=== PATIENT | female | born 1945 | race Two or more races ===

== ENCOUNTER 2017-10-23 00:43 | Emergency (ER) | payer MEDICARE, OTHER ==
[2017-10-23 01:24] VITALS: BP 133/58
== END 2017-10-23 01:33 | disposition left against medical advice (07) ==
LOC: ER 00:43
DX: Z53.21 Procedure and treatment not carried out due to patient leaving prior to being seen by health care provider (principal)

== ENCOUNTER 2019-08-19 09:02 | Emergency (ER) | payer MEDICARE ==
[2019-08-19 10:08] LABS: ABSOLUTE EOSINOPHILS # (AUTO) 0.1 10^3/uL (0.0-0.6); ABSOLUTE LYMPHOCYTES (AUTO) 1.5 10^3/uL (0.5-4.7); ABSOLUTE MONOCYTES (AUTO) 0.5 10^3/uL (0.1-1.4); ABSOLUTE NEUT (AUTO) 5.9 10^3/uL (1.7-8.2); BASOPHILS % (AUTO) 0.2 % (0-2); EOSINOPHILS % (AUTO) 0.8 % (0-6); HEMATOCRIT 36.7 % (36.0-47.0); HEMOGLOBIN 12.3 g/dL (12.0-15.5); LYMPHOCYTES % (AUTO) 18.7 % (13-45); MEAN CORPUSCULAR HEMOGLOBIN 29.9 pg (27.0-33.4); MEAN CORPUSCULAR HGB CONC 33.4 g/dL (32.0-36.0); MEAN CORPUSCULAR VOLUME 90 fl (80-97); MONOCYTES % (AUTO) 6.3 % (3-13); PLATELET COUNT 394 10^3/uL (150-450); RED CELL DISTRIBUTION WIDTH 14.4 % (11.5-14.0); TOTAL CELLS COUNTED % (AUTO) 100 %
--- NOTE | 2019-08-19 10:14 | ER Document Report ---
ED Medical Screen (RME) - General Chief Complaint: Probable Seizure Stated Complaint: POSSIBLE SEIZURE Time Seen by Provider: 08/19/19 10:09 Primary Care Provider: LUIS JONES MD [Primary Care Provider] - Follow up as needed Mode of Arrival: Wheelchair Information source: Relative Notes: 73-year-old female presented to ED for complaint of falling off the potty chair at home. According to the family the friends saw her shaking when she was on the floor but she was able to answer all questions. He states she was mumbling at times but family states she is dementia and does mumble frequently she does have a history of diabetes cholesterol osteoporosis. She is answering questions for me she does state that she thought she was altered in 73 but that is her age. She is able to move all extremities freely she denies any pain at this time. I have greeted and performed a rapid initial assessment of this patient. A comprehensive ED assessment and evaluation of the patient, analysis of test results and completion of medical decision making process will be conducted by an additional ED providers. TRAVEL OUTSIDE OF THE [place] IN LAST 30 DAYS: No - Related Data Allergies/Adverse Reactions: Penicillins Allergy (Intermediate, Verified 08/19/19 09:24) FAINTED Past Medical History - Past Medical History Cardiac Medical History: Reports: Hx Hypertension Denies: Hx Coronary Artery Disease, Hx Heart Attack Pulmonary Medical History: Denies: Hx Asthma, Hx Bronchitis, Hx COPD, Hx Pneumonia Neurological Medical History: Denies: Hx Cerebrovascular Accident, Hx Seizures Musculoskeltal Medical History: Denies Hx Arthritis Past Surgical History: Denies: Hx Hysterectomy - Immunizations Hx Diphtheria, Pertussis, Tetanus Vaccination: No Physical Exam - Vital signs Vitals: Temp Pulse Resp BP Pulse Ox 97.9 F 62 16 163/80 H 100 08/19/19 09:23 08/19/19 09:23 08/19/19 09:23 08/19/19 09:23 08/19/19 09:23 Course - Vital Signs Vital signs: Temp Pulse Resp BP Pulse Ox 97.9 F 62 16 161/95 H 100 08/19/19 09:23 08/19/19 09:23 08/19/19 10:01 08/19/19 10:01 08/19/19 10:01 - Laboratory Result Diagrams: 08/19/19 09:40 08/19/19 09:40 Doctor's Discharge - Discharge Referrals: LUIS JONES MD [Primary Care Provider] - Follow up as needed
[2019-08-19 10:19] LABS: ALBUMIN 4.6 g/dL (3.5-5.0); ALKALINE PHOSPHATASE 76 U/L (38-126); ANION GAP 11 (5-19); ASPARTATE AMINO TRANSFERASE 60 U/L (14-36); BILIRUBIN,DIRECT 0.1 mg/dL (0.0-0.4); BILIRUBIN,TOTAL 0.3 mg/dL (0.2-1.3); BLOOD UREA NITROGEN 31 mg/dL (7-20); CALCIUM 10.6 mg/dL (8.4-10.2); CARBON DIOXIDE 33 mmol/L (22-30); CHLORIDE 99 mmol/L (98-107); POTASSIUM 4.5 mmol/L (3.6-5.0); TOTAL PROTEIN 7.9 g/dL (6.3-8.2)
[2019-08-19 10:22] LABS: ALCOHOL < 10 mg/dL (NONE DETECTED); GLUCOSE 54 mg/dL (75-110)
[2019-08-19 10:54] LABS: APPEARANCE,URINE CLEAR; BILIRUBIN,URINE NEGATIVE (NEGATIVE); COLOR,URINE COLORLESS; GLUCOSE, URINE NEGATIVE (NEGATIVE); KETONES,URINE NEGATIVE (NEGATIVE); LEUKOCYTE ESTERASE,URINE NEGATIVE (NEGATIVE); NITRITE,URINE NEGATIVE (NEGATIVE); PROTEIN,URINE 30 mg/dL (NEGATIVE); URINE SPECIFIC GRAVITY 1.004; UROBILINOGEN,URINE NEGATIVE mg/dL (<2.0)
[2019-08-19 11:12] LABS: URINE AMPHETAMINES SCREEN NEGATIVE; URINE BARBITURATES SCREEN NEGATIVE; URINE BENZODIAZEPINES SCREEN NEGATIVE; URINE COCAINE SCREEN NEGATIVE; URINE MARIJUANA (THC) SCREEN NEGATIVE; URINE METHADONE SCREEN NEGATIVE; URINE PHENCYCLIDINE SCREEN NEGATIVE
--- NOTE | 2019-08-19 11:48 | ER Document Report ---
ED General - General Chief Complaint: Probable Seizure Stated Complaint: POSSIBLE SEIZURE Time Seen by Provider: 08/19/19 10:09 Primary Care Provider: LUIS JONES MD [Primary Care Provider] - Follow up as needed Mode of Arrival: Wheelchair TRAVEL OUTSIDE OF THE [place] IN LAST 30 DAYS: No - HPI Notes: 73 WF bib "daughter" (actually neighbor she calls her daughter and who has lived beside her for many years and helps w/ cooking, cleaning, ensuring taking meds since "hasn;'t seen any of her real family in years) after she she's had more difficulty in last few days w/ her balance, and even seems moreso off balance and more confused that her baseline. they finally decided to bring her in today after finding her on her but by her potty chair at home pt usually able to use her google voice to ask someone from next door to come assist but wasn't working. they had to help her up and she had no pain once upright nad bearing weight but didn't needed full assistance to ambulate. at baseline she will hold onto things sometimes when going outside but walks w/o assistive device. before last few days hasn't had regular fall hx. her "family" / next door noted she was tremulous when they found her but she was able to answer all questions. they say though she keeps mentioning the google voice repeatedly which isn't usually like her. during my interview she also perseverates on being embarassed of wetting herself again. family say she doers wear absorptive undergarments but usually has no difficulty knowing she needs to pee and making it to toilet. pt confirms has been wetting herself all today. family say her speech is baseline now but she now in last few days increasingly seems to lose attention and start mumbling, but can be redirected and follow commands and make appropriate respojnses. daughter noticed today after getting her up from floor she is tending to fall over to her sides which is not baseline. "daughter" reports has h/o "dementia" for decades and has needed assistance w/ iADLs for years they have known her. pt says "daughter/neighbor" is her surrogate decision maker. pt denies AGGARWAL, double vision. deneis any extremity or other tingling numbness. denies any clumsiness in her feet/hands, but is scared to walk now. says she's been taking all her meds for diabetes, and htn. no new changes in meds. family say she manages her own meds. not on any blood thinning meds - Related Data Allergies/Adverse Reactions: Penicillins Allergy (Intermediate, Verified 08/19/19 09:24) FAINTED Past Medical History - General Information source: Patient - pt refers to neighbor as daugher, Relative Cannot obtain history due to: Altered mental status - Social History Smoking Status: Never Smoker Frequency of alcohol use: None Drug Abuse: None Lives with: Alone - with daily check ins by neighors. Family History: Reviewed & Not Pertinent Patient has suicidal ideation: No Patient has homicidal ideation: No - Past Medical History Cardiac Medical History: Reports: Hx Hypertension Denies: Hx Coronary Artery Disease, Hx Heart Attack Pulmonary Medical History: Denies: Hx Asthma, Hx Bronchitis, Hx COPD, Hx Pneumonia Neurological Medical History: Denies: Hx Cerebrovascular Accident, Hx Seizures Musculoskeletal Medical History: Denies Hx Arthritis Past Surgical History: Denies: Hx Hysterectomy - Immunizations Hx Diphtheria, Pertussis, Tetanus Vaccination: No Review of Systems - Review of Systems Constitutional: See HPI, Weakness. denies: Chills, Diaphoresis, Fever, Weight gain, Weight loss, Recent illness EENT: No symptoms reported. denies: Blurred vision, Double vision, Ear pain, Difficulty swallowing, Dental problem, Vertigo Cardiovascular: No symptoms reported Respiratory: No symptoms reported Gastrointestinal: No symptoms reported Genitourinary: See HPI, Frequency, Incontinence. denies: Burning, Dysuria, Discharge, Flank pain, Hematuria, Urgency, Retention Female Genitourinary: No symptoms reported, Post menopausal. denies: Vaginal bleeding Musculoskeletal: No symptoms reported Skin: No symptoms reported Hematologic/Lymphatic: No symptoms reported Neurological/Psychological: See HPI. denies: Hallucinations Physical Exam - Vital signs Vitals: Temp Pulse Resp BP Pulse Ox 97.9 F 62 16 163/80 H 100 08/19/19 09:23 08/19/19 09:23 08/19/19 09:23 08/19/19 09:23 08/19/19 09:23 Interpretation: Normal - General General appearance: Appears well, Alert. No: Combative In distress: None - HEENT Head: Normocephalic, Atraumatic. No: Abrasions, Ecchymosis Eyes: Normal. No: Pale conjunctiva, Scleral icterus Conjunctiva: No: Injected Extraocular movements intact: Yes Eyelashes: Normal Pupils: PERRL Corrective lenses worn: No Visual lobato normal: Yes - intact 2 finger count all 4 quadrants b/l Ears: Normal External canal: Normal Tympanic membrane: Normal Hearing loss: No: Left, Right Nasal: No: Nicola deformity, Clear rhinorrhea Mouth/Lips: Normal. No: Lesions Mucous membranes: Normal, Moist Pharynx: No: Erythema, Exudate Neck: Supple. No: Carotid bruit, Lymphadenopathy, Meningismus, Neck mass, Thyroid nodule, Thyromegally - Respiratory Respiratory status: No respiratory distress Chest status: Nontender Breath sounds: Normal Chest palpation: Normal - Cardiovascular Rhythm: Regular Heart sounds: Normal auscultation Murmur: No - Abdominal Inspection: Normal Distension: No distension Bowel sounds: Normal Tenderness: Nontender Organomegaly: No organomegaly - Back Back: Normal, Nontender. No: Deformity/step-off, CVA tenderness, Vertebra tenderness, Wounds - Extremities General upper extremity: Normal inspection, Nontender, Normal color, Normal ROM, Normal temperature General lower extremity: Normal inspection, Nontender, Normal color, Normal ROM, Normal temperature, Normal weight bearing. No: Edilia's sign - Neurological Cognition: Other - alert, answer questions appropriately follows commands but inattentive after <min, perseverates on google voice and urinary incontinence mentioning ea mult times after convo moves on Orientation: AAOx4 [place] Coma Scale Eye Opening: Spontaneous [place] Coma Scale Verbal: Oriented Patricio Coma Scale Motor: Obeys Commands Patricio Coma Scale Total: 15 Speech: Normal Cranial nerves: Normal. No: Facial palsy, Gaze palsy Cerebellar coordination: Gait ataxia, Other - neg romberg, no focal extremity ataxia/apraxia on fine repetitive movemenbts but extremely off balance needing full assistance to try to walk heel toe straight line and on turning around, nearly topples on trying to turn around taking very small steps watching her feet closely. Motor strength normal: LUE, RUE, LLE, RLE Additional motor exam normals: No: Involuntary movements, Pronator drift, Hemiplegia Sensory: Normal Notes: Patient able to pull herself up from supine to sitting and then with assistance stand and bear weight she is extremely off balance when walking with assistance needing to hold onto me and look at her feet. No foot drop, only shuffled wide slow gait with worsen balance when trying to turn around needing more assistance. No extremity upper or lower difficulty with more fine repetitive movements distally, strength is 5 out of 5 in all muscle groups tested in upper and lower extremities no cranial nerve deficits no gross visual field deficits. She is alert able to maintain attention and contribute to conversation she does perseverate on her gout go home which usually is helpful to let her caretakers know she needs help. - Psychological Associated symptoms: Normal affect - mood and affect sad, appropriate to situation, congruent, Normal mood, Anxious, Tearful. No: Aggressive, Agitated, Angry, Auditory hallucinations, Combative, Confused, Labile, Paranoid, Ps ychomotor agitation, Restlessness, Tangential speech, Visual hallucinations - Skin Skin Temperature: Warm Skin Moisture: Dry Skin Color: Normal Course - Re-evaluation Re-evalutation: 08/29/19 20:54 CT head orderd given truncal instability and gait ataxia, and since older and now few falls in few days. this explained clinical presentation although w/ unexpected finding of calcified mass at pineal gland abutting 3rd ventricle which appears dilated. .see below for full rad report. no acute/other blood. no shift or cerebral edema [facility]. they agree send her bari, since there is evidence of transition of normal pressure hydrocephalus to very likely imminent obstructive hydrocephalus given time course --really ataxia of 2 days getting mjch worse. i informed pt and family about diagnosis and need to see nsgy bari. they wluild be seeing her immediately upon her arrival at other hospital, she'd go by air, and they will need to discuss with both of you the risk/benefits of placing "drain". i prepared they worry you might need this drain more emergently/urgently given time frame and looking at your ventricles on CT scan think you may have had this going on for longer period of time but CSF is more suddenly not able to flow which they worry will get worse unless drain is placed. i said this is a common nsgy procedure but def always high risk for any intracranial procedure. i said sometimes in older adults w/ normal pressure hydrocephalus the risks outweigh benefits b/c say they have high risk of falliung for other reasons etc, bt i said in your case you cont to cook full means and get around well, and they may feel it;s needed to save your life and have decent chance or restoring your function before this started. they understand. pt's sensorium/alertness, VS remained stable up to time of transfer. i relayed to flight team if there was sudden neuro/mental status change it was crucial to just get to nsy given csf blockage, but rx any seizures just on safe side. has two PIV. remains nonfocal also - Vital Signs Vital signs: Temp Pulse Resp BP Pulse Ox 99.1 F 62 20 151/84 H 100 08/19/19 16:22 08/19/19 09:23 08/19/19 16:01 08/19/19 16:00 08/19/19 16:01 - Laboratory Result Diagrams: 08/19/19 09:40 08/19/19 09:40 Laboratory results interpreted by me: 08/19/19 08/19/19 08/19/19 09:40 09:40 10:20 RDW 14.4 H Carbon Dioxide 33 H BUN 31 H Est GFR (MDRD) Non-Af 57 L Glucose 54 L POC Glucose Calcium 10.6 H AST 60 H Urine Protein 30 H Urine Blood SMALL H 08/19/19 08/19/19 12:41 13:44 RDW Carbon Dioxide BUN Est GFR (MDRD) Non-Af Glucose POC Glucose 178 H 184 H Calcium AST Urine Protein Urine Blood - Diagnostic Test Radiology reviewed: Image reviewed, Reports reviewed Radiology results interpreted by me: Reviewed patient CT head personally and radiologist impression she has a rim calcified mass in the area of the pineal gland around 3 x 2 x 2 no cerebral nicol a or midline shift evidence no acute or other blood seen. "Extensive low-density white matter areas third ventricle is partially effaced and both lateral and third ventricles are enlarged 08/19/19 13:59 Critical Care Note - Critical Care Note Total time excluding time spent on procedures (mins): 30 Discharge - Discharge Clinical Impression: Pineal gland, tumor, Obstructive hydrocephalus Condition: Serious Disposition: [facility] Referrals: LUIS JONES MD [Primary Care Provider] - Follow up as needed
--- NOTE | 2019-08-19 12:38 | RADIOLOGY REPORT (SQ) ---
EXAM DESCRIPTION: CT HEAD WITHOUT COMPLETED DATE/TIME: 08/19/2019 12:17 pm REASON FOR STUDY: falls x2 confusion COMPARISON: None. TECHNIQUE: Axial images acquired through the brain without intravenous contrast. Images reviewed wi th bone, brain and subdural windows. Additional sagittal and coronal reconstructions were generated. Images stored on PACS. All CT scanners at this facility use dose modulation, iterative reconstruction, and/or weight based d osing when appropriate to reduce radiation dose to as low as reasonably achievable (ALARA). [facility]: Dose Right [facility]: CareDose [facility]: Dose Right [facility]: Teradose 4D [facility]: Smart [employer] RADIATION DOSE: CT Rad equipment meets quality standard of care and radiation dose reduction techniq ues were employed. CTDIvol: 53.2 mGy. DLP: 1635 mGy-cm. mGy. LIMITATIONS: None. FINDINGS: VENTRICLES: Enlarged lateral and 3rd ventricles. The 3rd ventricle is partially effaced b y mass. CEREBRUM: There is a rim calcified mass arising from the vicinity of the pineal gland and cerebral aq ueduct measuring approximately 3.1 x 2.2 x 2.3 cm (series 2, image 10, series 104, image 32). No hem orrhage. No midline shift. No evidence for acute infarction. Extensive areas of low density in the white matter most likely chronic small vessel ischemic changes. CEREBELLUM: No masses. No hemorrhage. No alteration of density. No evidence for acute infarction. EXTRAAXIAL SPACES: No fluid collections. No masses. ORBITS AND GLOBE: No intra- or extraconal masses. Normal contour of globe without masses. CALVARIUM: No fracture. PARANASAL SINUSES: No fluid or mucosal thickening. SOFT TISSUES: No mass or hematoma. OTHER: No other significant finding. IMPRESSION: There is a rim calcified mass arising from the vicinity of the pineal gland and cerebral aqueduct measuring approximately 3.1 x 2.2 x 2.3 cm (series 2, image 10, series 104, image 32). The re are enlarged lateral and 3rd ventricles, with the 3rd ventricle partially effaced by mass. 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 Recommend co ntrast-enhanced MRI to further evaluate. EVIDENCE OF ACUTE STROKE: NO. COMMENT: Quality ID # [id number]: Final reports with documentation of one or more dose reduction techniques (e.g., Automated exposure control, adjustment of the mA and/or kV according to patient size, use of iterative reconstruction technique) TECHNICAL DOCUMENTATION: JOB ID: [id number] [employer]- All Rights Reserved Reading location - IP/workstation name: [email or web address]
[2019-08-19] MEDS ORDERED: NORMAL SALINE 1000 ML 1,000 ML IV ONE (15:05)
[2019-08-19 16:22] VITALS: BP 151/84
== END 2019-08-19 16:49 | disposition short-term general hospital (02) ==
LOC: ER 09:02
DX: D49.7 Neoplasm of unspecified behavior of endocrine glands and other parts of nervous system (principal); G91.1 Obstructive hydrocephalus; R41.0 Disorientation, unspecified; R53.1 Weakness; R26.0 Ataxic gait; E11.9 Type 2 diabetes mellitus without complications; I10 Essential (primary) hypertension; Z88.0 Allergy status to penicillin
CPT/HCPCS: 99285; 36415; 82962; 80307 ×2; 83735; 85025; 80053; 81001; 70450; J7030

== ENCOUNTER 2020-06-07 20:12 | Emergency (ER) | payer MEDICARE ==
--- NOTE | 2020-06-07 20:33 | ER Document Report ---
ED Medical Screen (RME) - General Chief Complaint: Inability to Void Stated Complaint: UNABLE TO URINATE Time Seen by Provider: 06/07/20 20:15 Primary Care Provider: LUIS JONES MD [Primary Care Provider] - Follow up as needed Mode of Arrival: Wheelchair Information source: Patient, Legal Guardian Notes: 74-year-old female presents to ED for unable to urinate. She states that she has not urinated since 8 AM. Her legal guardian who is her caregiver is with her. She states that diaper is been dry all day. She has been stating that she needs to go to the bathroom every 10 to 15 minutes but has not urinated and has not wet her diaper. She states she does have a history of dementia. 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 She does have diabetes type 2 high cholesterol osteoporosis bursitis and rheumatoid arthritis. Patient is alert and at her normal orientation according to the caregiver. I have greeted and performed a rapid initial assessment of this patient. A comprehensive ED assessment and evaluation of the patient, analysis of test results and completion of medical decision making process will be conducted by an additional ED providers. TRAVEL OUTSIDE OF THE [place] IN LAST 30 DAYS: No - Related Data Allergies/Adverse Reactions: Penicillins Allergy (Intermediate, Verified 08/19/19 09:24) FAINTED Past Medical History - Social History Chew tobacco use (# tins/day): No Frequency of alcohol use: None Drug Abuse: None - Past Medical History Cardiac Medical History: Reports: Hx Hypercholesterolemia, Hx Hypertension Denies: Hx Coronary Artery Disease, Hx Heart Attack Pulmonary Medical History: Denies: Hx Asthma, Hx Bronchitis, Hx COPD, Hx Pneumonia Neurological Medical History: Denies: Hx Cerebrovascular Accident, Hx Seizures Endocrine Medical History: Reports: Hx Diabetes Mellitus Type 2 Musculoskeltal Medical History: Denies Hx Arthritis Past Surgical History: Denies: Hx Hysterectomy - Immunizations Hx Diphtheria, Pertussis, Tetanus Vaccination: No Physical Exam - Vital signs Vitals: Temp Pulse Resp BP Pulse Ox 99.0 F 73 16 123/57 L 98 06/07/20 20:19 06/07/20 20:19 06/07/20 20:19 06/07/20 20:19 06/07/20 20:19 Course - Vital Signs Vital signs: Temp Pulse Resp BP Pulse Ox 99.0 F 73 16 123/57 L 98 06/07/20 20:21 06/07/20 20:19 06/07/20 20:19 06/07/20 20:19 06/07/20 20:19 Doctor's Discharge - Discharge Referrals: LUIS JONES MD [Primary Care Provider] - Follow up as needed
[2020-06-07 22:14] LABS: APPEARANCE,URINE SLIGHTLY-CLOUDY; BILIRUBIN,URINE NEGATIVE (NEGATIVE); COLOR,URINE YELLOW; GLUCOSE, URINE NEGATIVE (NEGATIVE); KETONES,URINE NEGATIVE (NEGATIVE); LEUKOCYTE ESTERASE,URINE SMALL (NEGATIVE); NITRITE,URINE NEGATIVE (NEGATIVE); PROTEIN,URINE NEGATIVE (NEGATIVE); URINE SPECIFIC GRAVITY 1.024; UROBILINOGEN,URINE NEGATIVE mg/dL (<2.0)
[2020-06-07] MEDS ORDERED: CEFTRIAXONE 1 GM/D5W RTU 1 GM/50 ML RTUPB IV ONE (23:07)
[2020-06-07] MEDS ORDERED: NORMAL SALINE 1000 ML 1,000 ML IV ONE (23:07)
[2020-06-07] MEDS ORDERED: PHENAZOPYRIDINE HCL 200 MG TABLET PO ONE (23:08)
--- NOTE | 2020-06-07 23:13 | ER Document Report ---
ED General - General Chief Complaint: Inability to Void Stated Complaint: UNABLE TO URINATE Time Seen by Provider: 06/07/20 20:15 Primary Care Provider: LUIS JONES MD [Primary Care Provider] - Follow up as needed Mode of Arrival: Wheelchair TRAVEL OUTSIDE OF THE [place] IN LAST 30 DAYS: No - HPI Context: 74-year-old female presents to the emergency department with her caregiver for evaluation of inability to urinate. Patient's caregiver relates most of history. She states that patient urinated this morning around 8 AM without difficulty. She also states that the patient usually urinates around 4:30 in the afternoon. The caregiver states that she tries to make sure the patient drinks at least 68 ounces of water daily but she says that she is caught the patient putting water on the plants instead of drinking it at times. Caregiver states that around 5:00 this afternoon, patient repeatedly expressed the need to urinate several times and was unable to do so. Patient has a history of dementia and is a difficult historian. She denies alleviating or exacerbating factors. Patient's caregiver states that patient has had her normal baseline mental status. - Related Data Allergies/Adverse Reactions: Penicillins Allergy (Intermediate, Verified 08/19/19 09:24) FAINTED Past Medical History - General Information source: Patient, Legal Guardian - Social History Smoking Status: Never Smoker Chew tobacco use (# tins/day): No Frequency of alcohol use: None Drug Abuse: None Family History: Reviewed & Not Pertinent Patient has homicidal ideation: No - Past Medical History Cardiac Medical History: Reports: Hx Hypercholesterolemia, Hx Hypertension Denies: Hx Coronary Artery Disease, Hx Heart Attack Pulmonary Medical History: Denies: Hx Asthma, Hx Bronchitis, Hx COPD, Hx Pneumonia Neurological Medical History: Denies: Hx Cerebrovascular Accident, Hx Seizures Endocrine Medical History: Reports: Hx Diabetes Mellitus Type 2 Musculoskeletal Medical History: Denies Hx Arthritis Past Surgical History: Denies: Hx Hysterectomy - Immunizations Hx Diphtheria, Pertussis, Tetanus Vaccination: No Review of Systems - Review of Systems Constitutional: No symptoms reported EENT: No symptoms reported Cardiovascular: No symptoms reported Respiratory: No symptoms reported Gastrointestinal: No symptoms reported Genitourinary: Other - Inability to urinate Female Genitourinary: No symptoms reported Musculoskeletal: No symptoms reported Skin: No symptoms reported Hematologic/Lymphatic: No symptoms reported Neurological/Psychological: No symptoms reported -: Yes All other systems reviewed and negative Physical Exam - Vital signs Vitals: Temp Pulse Resp BP Pulse Ox 99.0 F 73 16 123/57 L 98 06/07/20 20:19 06/07/20 20:19 06/07/20 20:19 06/07/20 20:19 06/07/20 20:19 - Notes Notes: CONSTITUTIONAL [Vital signs reviewed, Patient appears comfortable, patient is pleasant, alert and oriented to person and place..] HEAD [Atraumatic, Normocephalic.] EYES [Eyes are normal to inspection, No discharge from eyes, Extraocular muscles intact, Sclera are normal, Conjunctiva are normal.]] NECK [Normal ROM, No jugular venous distention, No meningeal signs, ] RESPIRATORY CHEST [Chest is nontender, Breath sounds normal, No respiratory distress.] CARDIOVASCULAR [RRR, No murmurs, Normal S1 S2, No rub, No gallop.] ABDOMEN [Abdomen is nontender, No pulsatile masses, No other masses, Bowel sounds normal, No distension, No peritoneal signs, No hernias.] BACK [There is no CVA Tenderness, There is no tenderness to palpation, Normal inspection.] UPPER EXTREMITY [Inspection normal, No cyanosis, No clubbing, No edema, 2+ radial pulses.] LOWER EXTREMITY [Inspection normal, No cyanosis, No clubbing, No edema, No calf tenderness, 2+ femoral pulses.] NEURO [No focal motor deficits, No focal sensory deficits, Speech normal.] SKIN [Skin is warm, Skin is dry, Skin is normal color.] LYMPHATIC [No adenopathy in neck.] PSYCHIATRIC [Normal affect. ] Course - Re-evaluation Re-evalutation: 06/07/20 23:15 Differential diagnosis: UTI, dehydration, acute kidney injury, urethral stricture 06/08/20 01:49 Results of ED MSE discussed with patient and patient's caregiver. All questions were answered prior to discharge. Bladder scan reportedly was unremarkable in terms of retained urine so this MD is ordering removal of the Merlos catheter. Final diagnoses are dehydration and acute cystitis. - Vital Signs Vital signs: Temp Pulse Resp BP Pulse Ox 99.0 F 73 16 123/57 L 98 06/07/20 20:21 06/07/20 20:19 06/07/20 20:19 06/07/20 20:19 06/07/20 20:19 - Laboratory Result Diagrams: 06/08/20 00:20 06/08/20 00:20 Laboratory results interpreted by me: 06/07/20 06/08/20 06/08/20 21:52 00:20 00:20 Hgb 11.3 L Hct 33.9 L RDW 14.9 H BUN 48 H Creatinine 1.26 H Est GFR ( Amer) 50 L Est GFR (MDRD) Non-Af 42 L Glucose 215 H AST 43 H ALT 37 H Total Protein 6.1 L Ur Leukocyte Esterase SMALL H Urine Ascorbic Acid 40 H Discharge - Discharge Clinical Impression: Dehydration Acute cystitis Qualifiers: Hematuria presence: without hematuria Qualified Code(s): N30.00 - Acute cystitis without hematuria Condition: Stable Disposition: HOME, SELF-CARE Additional Instructions: Return to the Emergency Department without delay if any worse. HOME CARE INSTRUCTIONS & INFORMATION: Thank you for choosing us for your medical needs. We hope you're satisfied with the care you received. After you leave, you must properly care for your problem and, at the same time, observe its progress. Any condition can change. Some illnesses can change rapidly over hours or days. If your condition worsens, return to the Emergency Department or see your physician promptly. ABOUT YOUR X-RAYS AND EKG'S: If you had an EKG or X-rays taken, they have been read by the Emergency Physician. The X-rays and EKG's will also be read by a Radiologist or Build And Deployment Engineer within 24 hours. If discrepancies are noted, you will be notified by telephone. Please be certain the ED has a correct telephone number & address where you can be reached. Also, realize that some fractures or abnormalities do not show up on initial X-rays. If your symptoms continue, see your physician. ABOUT YOUR LABORATORY TEST: If you had laboratory tests, the results have been reviewed by the Emergency Physician. Some test results (for example cultures) may not be available for several days. You will be contacted if any test result shows you need additional treatment. Please be certain the ED has a correct telephone number and address where you can be reached. ABOUT YOUR MEDICATIONS: You will receive instructions on how to take your medicine on the prescription label you receive. Additional information may be provided by the Pharmacy. If you have questions afterwards, call the ED for clarification or further instructions. Some prescribed medications may cause drowsiness. Do not perform tasks such as driving a car or operating machinery without consulting your Pharmacist. If you feel you need a refill of pain m edication, your condition will need re-evaluation. Please do not call for a refill of any medication. ABOUT YOUR SIGNATURE: Signature of this document acknowledges to followin. Understanding that you received emergency treatment and that you may be released before al medical problems are known or treated. Please be certain the ED has a correct phone number & address where you can be reached. 2. Acknowledgement that you will arrange for follow-up care as recommended. 3. Authorization for the Emergency Physician to provide information to your follow-up Physician in order to maximize your care. AT ANY TIME, IF YOUR SYMPTOMS CHANGE SIGNIFICANTLY OR WORSEN OR YOU DEVELOP NEW SYMPTOMS, RETURN TO THE EMERGENCY DEPARTMENT IMMEDIATELY FOR RE-EVALUATION. OUR GOAL IS TO PROVIDE EXCELLENT MEDICAL CARE! WE HOPE THAT WE HAVE MET YOUR EXPECTATIONS DURING YOUR EMERGENCY DEPARTMENT VISIT AND THAT YOU FEEL YOU HAVE RECEIVED EXCELLENT CARE! Urinary Tract Infection Your evaluation indicates that you have a urinary tract infection. This is due to germs growing in the bladder. This is a common problem. This infection usually responds quickly to antibiotics. Your antibiotic should be taken exactly as prescribed. Drink plenty of fluids -- three to four quarts a day. Occasionally, a bladder anesthetic will be prescribed to help stop the feeling of urgency until the antibiotic has a chance to clear the infection. This may cause your urine to be dark orange. Certain urine infections require a culture. If the doctor obtained a culture, the results will be back in two days. You should call to see if a change in treatment is needed. A repeat urinalysis after you finish treatment is often recommended. The physician will let you know if further testing is required. Call the doctor if you develop fever, chills, flank pain, inability to urinate, or blood in the urine. Dehydration Dehydration can result from vomiting or diarrhea, fever, or decreased intake of fluids. If severe, hospitalization and intravenous fluids may be required. Most cases are treated at home with fluids by mouth. For the next 24 hours, drink lots of clear fluids. In mild cases, this can be soda pop or sports drinks. For more severe dehydration, the doctor may r ecommend special fluids such as Pedialyte or Lytren. Try to get three liters (3 quarts) of fluid per day. If vomiting occurs, continue to drink the fluids frequently (every 15 to 20 minutes), but in small amounts (one or two ounces). Depending on the type of dehydration, the doctor may prescribe antinausea medicine or potassium replacements. Call the doctor or return for re-examination if you become progressively weak, vomit repeatedly, or have other new symptoms. Prescriptions: Nitrofurantoin Monohyd/M-Cryst [Macrobid 100 mg Capsule] 100 mg PO BID 7 Days #14 cap Phenazopyridine HCl [Pyridium 200 mg Tablet] 200 mg PO TID 2 Days #6 tablet Referrals: LUIS JONES MD [Primary Care Provider] - Follow up as needed
[2020-06-08 00:57] LABS: ABSOLUTE BASOPHILS # (AUTO) 0.1 10^3/uL (0.0-0.2); ABSOLUTE EOSINOPHILS # (AUTO) 0.1 10^3/uL (0.0-0.6); ABSOLUTE LYMPHOCYTES (AUTO) 1.6 10^3/uL (0.5-4.7); ABSOLUTE MONOCYTES (AUTO) 0.5 10^3/uL (0.1-1.4); ABSOLUTE NEUT (AUTO) 3.9 10^3/uL (1.7-8.2); EOSINOPHILS % (AUTO) 2.3 % (0-6); HEMATOCRIT 33.9 % (36.0-47.0); HEMOGLOBIN 11.3 g/dL (12.0-15.5); LYMPHOCYTES % (AUTO) 25.9 % (13-45); MEAN CORPUSCULAR HEMOGLOBIN 29.3 pg (27.0-33.4); MEAN CORPUSCULAR HGB CONC 33.4 g/dL (32.0-36.0); MEAN CORPUSCULAR VOLUME 88 fl (80-97); MONOCYTES % (AUTO) 8.7 % (3-13); PLATELET COUNT 331 10^3/uL (150-450); RED BLOOD COUNT 3.87 10^6/uL (3.72-5.28); RED CELL DISTRIBUTION WIDTH 14.9 % (11.5-14.0); SEGMENTED NEUTROPHILS % (AUTO) 62.1 % (42-78); TOTAL CELLS COUNTED % (AUTO) 100 %; WHITE BLOOD COUNT 6.3 10^3/uL (4.0-10.5)
[2020-06-08 01:01] LABS: ALBUMIN 3.7 g/dL (3.5-5.0); ALKALINE PHOSPHATASE 118 U/L (38-126); ANION GAP 7 (5-19); ASPARTATE AMINO TRANSFERASE 43 U/L (14-36); BILIRUBIN,DIRECT 0.3 mg/dL (0.0-0.4); BILIRUBIN,TOTAL 0.3 mg/dL (0.2-1.3); BLOOD UREA NITROGEN 48 mg/dL (7-20); CALCIUM 9.4 mg/dL (8.4-10.2); CARBON DIOXIDE 28 mmol/L (22-30); CHLORIDE 106 mmol/L (98-107); GLUCOSE 215 mg/dL (75-110); POTASSIUM 4.9 mmol/L (3.6-5.0); TOTAL PROTEIN 6.1 g/dL (6.3-8.2)
[2020-06-08 02:05] VITALS: BP 143/67
== END 2020-06-08 02:25 | disposition home or self-care (01) ==
LOC: ER 20:12
DX: N30.00 Acute cystitis without hematuria (principal); E86.0 Dehydration; I10 Essential (primary) hypertension; E11.9 Type 2 diabetes mellitus without complications; Z88.0 Allergy status to penicillin
CPT/HCPCS: 99284; 51702; 96374; 36415; 87086; 85025; 87088; 80053; 81001; 87186; A9270; J7030; J0696; J3490

== ENCOUNTER 2020-09-25 14:46 | Emergency (ER) | payer MEDICARE ==
--- NOTE | 2020-09-25 15:31 | ER Document Report ---
ED Medical Screen (RME) - General Chief Complaint: Fall Injury Stated Complaint: FALL/BACK PAIN Time Seen by Provider: 09/25/20 15:20 Primary Care Provider: LUIS JONES MD [Primary Care Provider] - Follow up as needed Notes: Family states patient's had 2 falls recently one last night around 11 and one at 2 PM today. Family states that patient has not been acting normally since 2 PM. Patient does have a history of dementia and a previous brain tumor that has been operated on. Family states that patient is refusing to stand up or bear weight and is not carrying on conversations when she normally would. Patient occasionally will not follow instructions. Patient denies any discomfort in triage. I have greeted and performed a rapid initial assessment of this patient. A comprehensive ED assessment and evaluation of the patient, analysis of test results and completion of the medical decision making process will be conducted by additional ED providers. TRAVEL OUTSIDE OF THE [place] IN LAST 30 DAYS: No - Related Data Allergies/Adverse Reactions: Penicillins Allergy (Intermediate, Verified 09/25/20 15:15) FAINTED Past Medical History - Past Medical History Cardiac Medical History: Reports: Hx Hypercholesterolemia, Hx Hypertension Denies: Hx Coronary Artery Disease, Hx Heart Attack Pulmonary Medical History: Denies: Hx Asthma, Hx Bronchitis, Hx COPD, Hx Pneumonia Neurological Medical History: Denies: Hx Cerebrovascular Accident, Hx Seizures Endocrine Medical History: Reports: Hx Diabetes Mellitus Type 2 Musculoskeltal Medical History: Denies Hx Arthritis Past Surgical History: Denies: Hx Hysterectomy - Immunizations Hx Diphtheria, Pertussis, Tetanus Vaccination: No Physical Exam - Vital signs Vitals: Temp Pulse Resp BP Pulse Ox 99 F 81 20 154/82 H 95 09/25/20 15:17 09/25/20 15:17 09/25/20 15:17 09/25/20 15:17 09/25/20 15:17 - Neurological Cognition: Confused - Confused at times Orientation: Disoriented to time, Disoriented to events Patricio Coma Scale Eye Opening: Spontaneous Course - Vital Signs Vital signs: Temp Pulse Resp BP Pulse Ox 99 F 81 20 154/82 H 95 09/25/20 15:17 09/25/20 15:17 09/25/20 15:17 09/25/20 15:17 09/25/20 15:17 Doctor's Discharge - Discharge Referrals: LUIS JONES MD [Primary Care Provider] - Follow up as needed
--- NOTE | 2020-09-25 15:54 | RADIOLOGY REPORT (SQ) ---
EXAM DESCRIPTION: CT HEAD WITHOUT IMAGES COMPLETED DATE/TIME: 09/25/2020 3:45 pm REASON FOR STUDY: fall, AMS COMPARISON: 08/19/2019 TECHNIQUE: Axial images acquired through the brain without intravenous contrast. Images reviewed wi th bone, brain and subdural windows. Additional sagittal and coronal reconstructions were generated. Images stored on PACS. All CT scanners at this facility use dose modulation, iterative reconstruction, and/or weight based d osing when appropriate to reduce radiation dose to as low as reasonably achievable (ALARA). [facility]: Dose Right [facility]: CareDose [facility]: Dose Right [facility]: Teradose 4D [facility]: Smart [employer] RADIATION DOSE: CT Rad equipment meets quality standard of care and radiation dose reduction techniq ues were employed. CTDIvol: 53.2 - 55.2 mGy. DLP: 2019 mGy-cm.mGy. LIMITATIONS: None. FINDINGS: VENTRICLES: Persistent ventriculomegaly. CEREBRUM: Postsurgical changes on the right. Decreased attenuation throughout the periventricular wh ite matter consistent with small vessel disease. There is focal encephalomalacia in the right fronta l lobe most likely related to surgery. Large calcified mass in the region of the pt nail gland previ ously described is no longer noted. CEREBELLUM: No masses. No hemorrhage. No alteration of density. No evidence for acute infarction. EXTRAAXIAL SPACES: Age-related involutional change. No fluid collections. No masses. ORBITS AND GLOBE: No intra- or extraconal masses. Normal contour of globe without masses. CALVARIUM: No fracture. PARANASAL SINUSES: No fluid or mucosal thickening. SOFT TISSUES: No mass or hematoma. OTHER: No other significant finding. IMPRESSION: Postsurgical changes. Small vessel disease. No acute intracranial event. EVIDENCE OF ACUTE STROKE: NO. TECHNICAL DOCUMENTATION: JOB ID: [id number] Quality ID # [id number]: Final reports with documentation of one or more dose reduction techniques (e.g., Au tomated exposure control, adjustment of the mA and/or kV according to patient size, use of iterative reconstruction technique) 2010 [employer]- All Rights Reserved Reading location - IP/workstation name: [email or web address]
--- NOTE | 2020-09-25 15:55 | RADIOLOGY REPORT (SQ) ---
EXAM DESCRIPTION: CT CERVICAL SPINE WITHOUT IMAGES COMPLETED DATE/TIME: 09/25/2020 3:45 pm REASON FOR STUDY: fall COMPARISON: None. TECHNIQUE: Axial images acquired through the cervical spine without intravenous contrast. Images re viewed with lung, soft tissue and bone windows. Reconstructed coronal and sagittal MPR images review ed. Images stored on PACS. All CT scanners at this facility use dose modulation, iterative reconstruction, and/or weight based d osing when appropriate to reduce radiation dose to as low as reasonably achievable (ALARA). [facility]: Dose Right [facility]: CareDose [facility]: Dose Right [facility]: Teradose 4D [facility]: Smart [employer] RADIATION DOSE: CT Rad equipment meets quality standard of care and radiation dose reduction techniq ues were employed. CTDIvol: 10.9 mGy. DLP: 184 mGy-cm. mGy. LIMITATIONS: None. FINDINGS: ALIGNMENT: Anatomic. MINERALIZATION: Normal. VERTEBRAL BODIES: No fractures or dislocation. DISCS: Multilevel disc space narrowing with osteophytes. FACETS, LATERAL MASSES, POSTERIOR ELEMENTS: Facet arthropathy. No fractures. No dislocation. No ac burns paiute findings. HARDWARE: None in the spine. VISUALIZED RIBS: No fractures. LUNG APICES AND SOFT TISSUES: No significant or acute findings. OTHER: No other significant finding. IMPRESSION: CHRONIC DEGENERATIVE CHANGES. NO ACUTE FINDINGS. TECHNICAL DOCUMENTATION: JOB ID: [id number] Quality ID # [id number]: Final reports with documentation of one or more dose reduction techniques (e.g., Au tomated exposure control, adjustment of the mA and/or kV according to patient size, use of iterative reconstruction technique) 2010 [employer]- All Rights Reserved Reading location - IP/workstation name: [email or web address]
--- NOTE | 2020-09-25 16:06 | ER Document Report ---
ED General - General Chief Complaint: Fall Stated Complaint: FALL/BACK PAIN Time Seen by Provider: 09/25/20 15:20 Primary Care Provider: LUIS JONES MD [Primary Care Provider] - Follow up as needed Notes: Presents with pain and slight confusion. She has dementia lives alone but is supervised essentially 19/04 by her live-in neighbor who is a daughter figure to her and has known her for 20 years. The daughter figure, noticed that the patient was trying to get up and helped her but turned around briefly and the patient fell on the floor. She has been fidgety and complaining of pain in her whole body since then. No fevers no smelly urine or urinary symptoms no vomiting no trauma. TRAVEL OUTSIDE OF THE [place] IN LAST 30 DAYS: No - Related Data Allergies/Adverse Reactions: Penicillins Allergy (Intermediate, Verified 09/25/20 15:15) FAINTED Past Medical History - Social History Smoking Status: Never Smoker Chew tobacco use (# tins/day): No Drug Abuse: None Family History: Reviewed & Not Pertinent - Past Medical History Cardiac Medical History: Reports: Hx Hypercholesterolemia, Hx Hypertension Denies: Hx Coronary Artery Disease, Hx Heart Attack Pulmonary Medical History: Denies: Hx Asthma, Hx Bronchitis, Hx COPD, Hx Pneumonia Neurological Medical History: Denies: Hx Cerebrovascular Accident, Hx Seizures Endocrine Medical History: Reports: Hx Diabetes Mellitus Type 2 Musculoskeletal Medical History: Denies Hx Arthritis Past Surgical History: Denies: Hx Hysterectomy - Immunizations Hx Diphtheria, Pertussis, Tetanus Vaccination: No Review of Systems - Review of Systems Notes: REVIEW OF SYSTEMS Dementia PHYSICAL EXAMINATION General: No acute distress, well-nourished Head: Atraumatic, normocephalic ENT: Mouth normal, oropharynx moist, no exudates or tonsillar enlargement Eyes: Conjunctiva normal, pupils equal, lids normal Neck: No JVD, supple, no guarding CVS: Normal rate, regular rhythm, no murmurs Resp: No resp distress, equal and normal breath sounds bilaterally GI: Nondistended, soft, no tenderness to palpation, no rebound or guarding Ext: No deformities, no edema, normal range of motion in upper and lower ext Back: No CVA or midline TTP Skin: No rash, warm Lymphatic: No lymphadeopathy noted Neuro: Awake, alert. Answers simple questions but is disoriented and moves all extremities. 15. Physical Exam - Vital signs Vitals: Temp Pulse Resp BP Pulse Ox 99 F 81 20 154/82 H 95 09/25/20 15:17 09/25/20 15:17 09/25/20 15:17 09/25/20 15:17 09/25/20 15:17 Course - Re-evaluation Re-evalutation: 09/25/20 18:48 Patient presents with a fall. Her mental status is at baseline patient does have some muscle pain. Ruled out for rhabdo labs are essentially normal except for some dehydration and some nonspecific elevation of LFTs and a high enough to worry. She had imaging of her entire axial spine and had all of which were negative. She was observed with no decompensation. She will be discharged home to follow-up with her primary. I have discussed with the patient there likely diagnosis, aftercare plan, follow-up plans and my usual and customary return precautions. They verbalized understanding of this. - Vital Signs Vital signs: Temp Pulse Resp BP Pulse Ox 99.6 F 81 20 154/82 H 98 09/25/20 16:02 09/25/20 15:17 09/25/20 15:17 09/25/20 15:17 09/25/20 15:27 - Laboratory Results Result Diagrams: 09/25/20 17:45 09/25/20 17:45 Laboratory Results Interpreted: 09/25/20 09/25/20 09/25/20 16:28 17:45 17:45 Hgb 10.7 L Hct 32.1 L RDW 15.1 H Lymph % (Auto) 9.9 L Absolute Neuts (auto) 8.4 H Seg Neutrophils % 80.0 H Sodium 132.0 L Chloride 97 L BUN 28 H Est GFR (MDRD) Non-Af 53 L Glucose 292 H AST 37 H Alkaline Phosphatase 137 H Creatine Kinase 191 H Urine Glucose (UA) >=500 H Urine Blood SMALL H Critical Laboratory Results Reviewed: No Critical Results - Radiology Results Critical Radiology Results Reviewed: No Critical Results Discharge - Discharge Clinical Impression: Fall from standing Qualifiers: Encounter type: initial encounter Qualified Code(s): W19.XXXA - Unspecified fall, initial encounter Condition: Good Disposition: HOME, SELF-CARE Instructions: Contusion ([facility]) Additional Instructions: There is no broken bone soft tissue injury internal bleeding or other complication from the fall today we did not find any evidence of infection dehydration kidney failure or other emergency condition. Referrals: LUIS JONES MD [Primary Care Provider] - Follow up as needed
--- NOTE | 2020-09-25 16:26 | RADIOLOGY REPORT (SQ) ---
EXAM DESCRIPTION: CHEST SINGLE VIEW IMAGES COMPLETED DATE/TIME: 09/25/2020 4:19 pm REASON FOR STUDY: fall, AMS COMPARISON: None. EXAM PARAMETERS: NUMBER OF VIEWS: One view. TECHNIQUE: Single frontal radiographic view of the chest acquired. RADIATION DOSE: NA LIMITATIONS: None. FINDINGS: LUNGS AND PLEURA: No opacities, masses or pneumothorax. No pleural effusion. MEDIASTINUM AND HILAR STRUCTURES: No masses. Contour normal. HEART AND VASCULAR STRUCTURES: Heart normal in size. Normal vasculature. BONES: No acute findings. HARDWARE: None in the chest. OTHER: No other significant finding. IMPRESSION: NO ACUTE RADIOGRAPHIC FINDING IN THE CHEST. TECHNICAL DOCUMENTATION: JOB ID: [id number] 2010 [employer]- All Rights Reserved Reading location - IP/workstation name: [email or web address]
--- NOTE | 2020-09-25 16:28 | RADIOLOGY REPORT (SQ) ---
EXAM DESCRIPTION: HIP BILATERAL IMAGES COMPLETED DATE/TIME: 09/25/2020 4:19 pm REASON FOR STUDY: fall COMPARISON: None. NUMBER OF VIEWS: Two views TECHNIQUE: AP pelvis and additional frog-leg view of both hips. LIMITATIONS: None. FINDINGS: MINERALIZATION: Normal. HIPS: No acute fracture or dislocation. No worrisome bone lesions. PELVIS AND SACRUM: No acute fracture or dislocation. No worrisome bone lesions. PUBIS AND ISCHIUM: No acute fracture. LOWER LUMBAR SPINE: No significant findings as visualized. SOFT TISSUES: No findings. OTHER: No other significant finding. IMPRESSION: NEGATIVE STUDY OF THE PELVIS AND HIPS. TECHNICAL DOCUMENTATION: JOB ID: [id number] 2010 [employer]- All Rights Reserved Reading location - IP/workstation name: [email or web address]
[2020-09-25 16:47] LABS: APPEARANCE,URINE CLEAR; BILIRUBIN,URINE NEGATIVE (NEGATIVE); COLOR,URINE STRAW; GLUCOSE, URINE >=500 mg/dL (NEGATIVE); KETONES,URINE NEGATIVE (NEGATIVE); LEUKOCYTE ESTERASE,URINE NEGATIVE (NEGATIVE); NITRITE,URINE NEGATIVE (NEGATIVE); PROTEIN,URINE NEGATIVE (NEGATIVE); URINE SPECIFIC GRAVITY 1.015; UROBILINOGEN,URINE NEGATIVE mg/dL (<2.0)
--- NOTE | 2020-09-25 17:00 | RADIOLOGY REPORT (SQ) ---
EXAM DESCRIPTION: CT THORACIC SPINE WITHOUT IMAGES COMPLETED DATE/TIME: 09/25/2020 4:49 pm REASON FOR STUDY: fall back pain COMPARISON: None. TECHNIQUE: Axial images acquired through the thoracic spine without intravenous contrast. Images re viewed with lung, soft tissue and bone windows. Reconstructed coronal and sagittal MPR images review ed. Images stored on PACS. All CT scanners at this facility use dose modulation, iterative reconstruction, and/or weight based d osing when appropriate to reduce radiation dose to as low as reasonably achievable (ALARA). [facility]: Dose Right [facility]: CareDose [facility]: Dose Right [facility]: Teradose 4D [facility]: [employer] RADIATION DOSE: CT Rad equipment meets quality standard of care and radiation dose reduction techniq ues were employed. CTDIvol: 31.9 - 31.9 mGy. DLP: 1856 mGy-cm. mGy. LIMITATIONS: Motion. FINDINGS: VISUALIZED LUNGS: No acute opacities. No pneumothorax. SOFT TISSUES: No soft tissue swelling. No masses. VERTEBRAL BODIES: Chronic mild compression fracture T11. No acute fracture. DISCS: Degenerative disc disease at multiple levels. ALIGNMENT: Exaggerated kyphosis. Mild scoliosis. TRANSVERSE PROCESSES, POSTERIOR ELEMENTS: Hypertrophic osteophytes at multiple levels. HARDWARE: None in the spine. VISUALIZED RIBS: No fractures. OTHER: No other significant finding. IMPRESSION: CHRONIC DEGENERATIVE CHANGES WITHOUT ACUTE FRACTURE. TECHNICAL DOCUMENTATION: JOB ID: [id number] Quality ID # [id number]: Final reports with documentation of one or more dose reduction techniques (e.g., Au tomated exposure control, adjustment of the mA and/or kV according to patient size, use of iterative reconstruction technique) 2010 [employer]- All Rights Reserved Reading location - IP/workstation name: [email or web address]
--- NOTE | 2020-09-25 17:03 | RADIOLOGY REPORT (SQ) ---
EXAM DESCRIPTION: CT LUMBAR SPINE WITHOUT IMAGES COMPLETED DATE/TIME: 09/25/2020 4:49 pm REASON FOR STUDY: fall back pain COMPARISON: None. TECHNIQUE: Axial images acquired through the lumbar spine without intravenous contrast. Images revi ewed with lung, soft tissue and bone windows. Reconstructed coronal and sagittal MPR images reviewed . All images stored on PACS. All CT scanners at this facility use dose modulation, iterative reconstruction, and/or weight based d osing when appropriate to reduce radiation dose to as low as reasonably achievable (ALARA). [facility]: Dose Right [facility]: CareDose [facility]: Dose Right [facility]: Teradose 4D [facility]: [employer] RADIATION DOSE: mGy. LIMITATIONS: Motion artifact. FINDINGS: Bones are osteopenic. Chronic appearing compression inferior endplate L2. No evidence of acute compression fracture. Grade 1 spondylolisthesis L4-5. Spondylosis and facet arthropathy. [place] appears intact. Sacral fractures can be occult in patients that are osteopenic. No paraspinal hematoma. IMPRESSION: No acute fracture. TECHNICAL DOCUMENTATION: JOB ID: [id number] Quality ID # [id number]: Final reports with documentation of one or more dose reduction techniques (e.g., Au tomated exposure control, adjustment of the mA and/or kV according to patient size, use of iterative reconstruction technique) 2010 [employer]- All Rights Reserved Reading location - IP/workstation name: [email or web address]
--- NOTE | 2020-09-25 18:01 | EKG REPORT ---
SEVERITY:- ABNORMAL ECG - SINUS RHYTHM PROBABLY WITH ;PAC INCOMPLETE RBBB AND LAFB BASELINE ARTEFACT MAKES INTERPRETATION HARD LEFT VENTRICULAR HYPERTROPHY : Confirmed by: John Alvarez MD 25-Sep-2020 18:00:29
[2020-09-25 18:12] LABS: ABSOLUTE NEUT (AUTO) 8.4 10^3/uL (1.7-8.2); BASOPHILS % (AUTO) 0.3 % (0-2); EOSINOPHILS % (AUTO) 0.2 % (0-6); HEMATOCRIT 32.1 % (36.0-47.0); HEMOGLOBIN 10.7 g/dL (12.0-15.5); INTERNATIONAL RATION (INR) 0.88; LYMPHOCYTES % (AUTO) 9.9 % (13-45); MEAN CORPUSCULAR HEMOGLOBIN 28.4 pg (27.0-33.4); MEAN CORPUSCULAR HGB CONC 33.3 g/dL (32.0-36.0); MEAN CORPUSCULAR VOLUME 85 fl (80-97); MONOCYTES % (AUTO) 9.6 % (3-13); PLATELET COUNT 319 10^3/uL (150-450); PROTHROMBIN TIME 12.1 SEC (11.4-15.4); RED BLOOD COUNT 3.76 10^6/uL (3.72-5.28); RED CELL DISTRIBUTION WIDTH 15.1 % (11.5-14.0); TOTAL CELLS COUNTED % (AUTO) 100 %; WHITE BLOOD COUNT 10.5 10^3/uL (4.0-10.5)
[2020-09-25 18:13] LABS: PARTIAL THROMBOPLASTIN TIME 26.7 SEC (23.5-35.8)
[2020-09-25 18:41] LABS: ALBUMIN 3.7 g/dL (3.5-5.0); ALKALINE PHOSPHATASE 137 U/L (38-126); ANION GAP 5 (5-19); ASPARTATE AMINO TRANSFERASE 37 U/L (14-36); BILIRUBIN,DIRECT 0.1 mg/dL (0.0-0.4); BILIRUBIN,TOTAL 0.4 mg/dL (0.2-1.3); BLOOD UREA NITROGEN 28 mg/dL (7-20); CALCIUM 9.7 mg/dL (8.4-10.2); CARBON DIOXIDE 30 mmol/L (22-30); CHLORIDE 97 mmol/L (98-107); CREATINE KINASE 191 U/L (30-135); GLUCOSE 292 mg/dL (75-110); POTASSIUM 4.6 mmol/L (3.6-5.0); TOTAL PROTEIN 6.7 g/dL (6.3-8.2)
[2020-09-25] MEDS ORDERED: ACETAMINOPHEN 325 MG TABLET PO ONE (18:52)
[2020-09-25] MEDS ORDERED: IBUPROFEN 600 MG TABLET PO ONE (18:52)
[2020-09-25 19:22] VITALS: BP 117/81
== END 2020-09-25 19:23 | disposition home or self-care (01) ==
LOC: ER 14:46
DX: M54.9 Dorsalgia, unspecified (principal); M79.10 Myalgia, unspecified site; W19.XXXA Unspecified fall, initial encounter; F03.90 Unspecified dementia, unspecified severity, without behavioral disturbance, psychotic disturbance, mood disturbance, and anxiety; M47.814 Spondylosis without myelopathy or radiculopathy, thoracic region; M47.812 Spondylosis without myelopathy or radiculopathy, cervical region; E86.0 Dehydration; R79.89 Other specified abnormal findings of blood chemistry; I10 Essential (primary) hypertension; E11.9 Type 2 diabetes mellitus without complications; Z88.0 Allergy status to penicillin
CPT/HCPCS: 93005; 99285; 36415; 82550; 85025; 85610; 85730; 80053; 81001; 84484; 71045; 73522; 70450; 72125; 72128; 72131; 93010; A9270 ×2